=== PATIENT | female | born 2000 | race Caucasian/White ===

== ENCOUNTER 2023-04-05 14:16 | Emergency (ER) | payer BC, SELFPAY ==
--- NOTE | ~2023-04-05 | XR_ITS ---
EXAMINATION: XR toe 5th RT min 2V INDICATION: Right fifth toe pain, initial encounter TECHNIQUE: Three views of the left fifth toe are obtained. COMPARISON: None available FINDINGS: There is an acute, transverse fracture in the proximal neck of the fifth proximal phalanx. Soft tissue swelling surrounds the fracture. No additional fracture is identified. IMPRESSION: 1. Acute transverse fracture in the proximal neck of the fifth proximal phalanx. Reviewed, dictated and finalized at location L. IMPRESSION: 1. Acute transverse fracture in the proximal neck of the fifth proximal phalanx .
[2023-04-05 14:30] VITALS: BP 110/68; PULSE 72; RESP 16; TEMP 36.8; O2SAT 99
--- NOTE | 2023-04-05 14:42 | ED.LOWEXIN ---
HPI - Extremity Injury (Lower) General Chief Complaint: Extremity Injury, Lower Stated Complaint: Right Foot Pain Time Seen by Provider: 04/05/23 14:45 Source: patient, RN notes reviewed and old records reviewed Mode of arrival: ambulatory Limitations: no limitations History of Present Illness HPI Narrative: 22 year old female who presents to [facility] with complaints of stubbing her right 5th toe on the leg of her couch about 2 hours ago. Patient has pain to her right 5th toe at base of toe with superficial laceration to the inner side of toe and also superficial laceration on the dorsal aspect of her 4th right toe, no acute active bleeding noted. Right 5th toe is swollen and some faint ecchymosis noted, nail bed has brisk capillary refill,mobility is impaired. Patient reports that she took some Aleve for her discomfort. MD complaint: other (toe injury) Onset (ago): hour(s) (2) Severity scale (1-10): 6 Treatments prior to arrival: other (Aleve) Related Data Home Medications Medication Instructions Recorded Confirmed No Home Medications 04/05/23 04/05/23 Allergies Allergy/AdvReac Type Severity Reaction Status Date / Time No Known Allergies Allergy Unknown Verified 04/05/23 14:51 Review of Systems Review of Systems: CONSTITUTIONAL: Denies fever, chills, or sweats. EYES: Denies visual changes, redness, or discharge. ENT: Denies rhinorrhea, congestion, sore throat, or otalgia. CARDIOVASCULAR: Denies chest pain, palpitations, or edema. RESPIRATORY: Denies cough or dyspnea. GASTROINTESTINAL: Denies abdominal pain, nausea, vomiting, or diarrhea. GENITOURINARY: Denies dysuria or hematuria. SKIN: Denies rash or itching. superficial lacerations to side of 5th toe right foot and to dorsal aspect of 4th toe MUSCULOSKELETAL: Denies back pain, roght 5th toe pain, or myalgia. NEUROLOGIC: Denies headache, numbness, or weakness. PSYCHIATRIC: Denies anxiety or depression. All systems reviewed & are unremarkable except as noted in HPI and below PMFSH Social History Social History (Updated 04/07/23 @ 07:10 by Marsha Heaton NP) Smoking packs per day: 0.5 Smoking cigarettes per day: 10.0 Smoking status: Current every day smoker Tobacco type: cigarettes Alcohol intake: current Alcohol use details: social Substance use type: does not use Living arrangements: with family Gender identity (if verbalized by the patient): Female Comments At time of signature, agree with nursing past medical, surgical, social and family history. There is no relevant family history pertinent to the presenting complaint Exam Narrative: GENERAL: Well-appearing, well-nourished, and in no acute distress. HEAD: Normocephalic, atraumatic. EYES: PERRLA and EOMI. ENT: Nares clear, no rhinorrhea or epistaxis. Mucous membranes moist.TM's normal, throat pink with no swelling NECK: Supple.no lymphadenopathy CHEST: Clear to auscultation. No respiratory distress.SAO2 99% on room air HEART: Regular rate and rhythm. No murmur heard. Normal peripheral pulses. ABDOMEN: Soft, nontender, nondistended, normal active bowel sounds. EXTREMITIES: Normal range of motion. No edema.Exception noted to swelling faint ecchymosis to right 5th toe with limited mobility of toe and pain at base of toe, strong right pedal pulse and nail beds eyal briskly. SKIN: Warm, dry, no rash. 1.5cm laceration to inner aspect of right 5th toe and 1cm laceration to the dorsal aspect of right 4th toe NEURO: No focal deficits. Alert and oriented x3. Course Course Emergency Course: Patient is aware of diagnosis, understands and agrees to treatment plan.? Anticipatory guidance given.? Patient agrees to follow-up as directed and is aware of reasons to seek care at the emergency department. Portions of this record may have been created with voice recognition software Level of Care: Express Care Visit Vital Signs Vital signs: Vital Signs Temperature 36.8 C 04/05/23
== END 2023-04-05 15:16 | disposition home or self-care (01) ==
PROVIDERS: Emergency Provider Registered Nurse
DX: S92.511A Displaced fracture of proximal phalanx of right lesser toe(s), initial encounter for closed fracture (principal); W22.03XA Walked into furniture, initial encounter; S91.114A Laceration without foreign body of right lesser toe(s) without damage to nail, initial encounter; F17.210 Nicotine dependence, cigarettes, uncomplicated
CPT/HCPCS: 73660; 99213; G0463